=== PATIENT | male | born 1980 | race Caucasian/White ===

== ENCOUNTER 2017-08-14 19:16 | Emergency (ER) | payer OTHER ==
[~2017-08-14] VITALS: Ht 167.6 cm; Wt 94.5 kg
[2017-08-15] MEDS ORDERED: ZOFRAN4 MG PO (00:21)
[2017-08-15] MEDS ORDERED: BENTYL10 MG PO (00:28)
[2017-08-15 00:40] VITALS: BP 109/66
== END 2017-08-15 00:40 | disposition home or self-care (01) ==
LOC: EME 19:16
DX: R11.2 Nausea with vomiting, unspecified (principal); R19.7 Diarrhea, unspecified; F41.9 Anxiety disorder, unspecified; Z87.891 Personal history of nicotine dependence
CPT/HCPCS: 80053; 81003; 83690; 85027